=== PATIENT | female | born 1990 | race Caucasian/White ===

== ENCOUNTER 2016-07-16 08:51 | Emergency (ER) | payer MEDICAID ==
[~2016-07-16] VITALS: Ht 157.5 cm; Wt 82.0 kg
[2016-07-16 09:27] VITALS: BP 126/84
[2016-07-16] MEDS ORDERED: KETOROLAC 30MG/ML VIAL IV ONE (09:45)
[2016-07-16] MEDS ORDERED: KETOROLAC 30MG/ML VIAL IM ONE (10:00)
== END 2016-07-16 10:00 | disposition home or self-care (01) ==
LOC: ER 08:52
DX: J98.8 Other specified respiratory disorders (principal); H92.01 Otalgia, right ear
CPT/HCPCS: 99282